=== PATIENT | male | born 1955 | race African-American/Black ===

== ENCOUNTER → 2018-08-09 | Outpatient (CLI) | payer OTHER ==
[~2018-08-09] MED LIST: BUPIVACAINE MPF 0.5% 10 ML VIAL. IJ ONE; CHOL400C PO; CYCL5TAB PO; FERR325T23 PO; IOHEXOL 300 MG/ML 50 ML VIAL. IJ ONE; LIDOCAINE WITH 8.4% SOD BICARB 3 ML DISP.SYRIN. INJ ONE; METO25TA4 PO; TRAZ-86 PO; methylPREDNISolone ACETATE 80 MG/ML VIAL. IM ONE
--- NOTE | 2018-08-09 15:10 | RAD ---
Fluoroscopically guided right hip joint injection, 08/09/2018: History: Right hip pain Under local anesthesia, aseptic conditions and fluoroscopic guidance a 22-gauge spinal needle was passed into the right hip joint via an anterior approach. A small amount of iodinated contrast material was injected to confirm intra-articular positioning following which 3 cc of 0.5% Bupivacaine mixed with 80 mg of Depo-Medrol was injected in the joint as requested. The needle was then removed and hemostasis obtained. 0.7 minutes of fluoroscopy time was utilized. One fluoroscopic spot image was recorded. The patient tolerated the procedure well and left the department in good condition.
== END | disposition home or self-care (01) ==
LOC: RAD 13:14
PROVIDERS: ATTEND Orthopaedic Surgery
DX: M25.551 Pain in right hip (principal); J44.9 Chronic obstructive pulmonary disease, unspecified; F17.210 Nicotine dependence, cigarettes, uncomplicated; Z79.01 Long term (current) use of anticoagulants; Z95.1 Presence of aortocoronary bypass graft
CPT/HCPCS: 20610; 77002; J1040; Q9967

== ENCOUNTER → 2019-05-23 | Outpatient (CLI) | payer OTHER ==
[~2019-05-23] MED LIST changes: +ALBU2.5V8 INH; +ASPI-630 PO; +BUDE180A IH; -BUPIVACAINE MPF 0.5% 10 ML VIAL. IJ ONE; +HYDR-2769 PO; -IOHEXOL 300 MG/ML 50 ML VIAL. IJ ONE; -LIDOCAINE WITH 8.4% SOD BICARB 3 ML DISP.SYRIN. INJ ONE; +LIPITOR80 MG PO; +METO200T46 PO; +MIRT30TA3 PO; +PANT40TA77 PO; +SPIR25TA5 PO; +TRAZ-123 PO; -TRAZ-86 PO; +VALS320T2 PO; +ZOLP5TAB PO; -methylPREDNISolone ACETATE 80 MG/ML VIAL. IM ONE
[2019-05-23 09:56] LABS: PROTHROMBIN TIME PATIENT 13.7 SEC (11.7-14.0)
[2019-05-23 23:07] LABS: HEMOGLOBIN A1C 5.6 % (4.8-5.6)
--- NOTE | 2019-05-24 07:52 | RAD ---
CHEST PA LATERAL History: COPD. Presurgical evaluation. Comparison: 04/12/2013 Portable Chest X-ray Exam. Findings: Frontal and lateral views of the chest were obtained. Sternal wires and mediastinal clips are present. The cardiomediastinal silhouette is normal. Pulmonary vasculature is normal. The lungs are clear. Outside abdomen involves the lateral right lung field. Linear scarring at the left lateral mid thoracic level is similar to the previous exam. Borderline pulmonary hyperinflation. Bibasilar opacities which appear to represent nipple shadows are again seen. No pleural effusion or pneumothorax is seen. There is no acute bone abnormality. IMPRESSION: No acute cardiopulmonary process. Electronically signed by: Jigar Johnson MD (05/24/2019 7:50 AM) [facility]
== END | disposition home or self-care (01) ==
LOC: SURGPAT 13:05
PROVIDERS: ATTEND Orthopaedic Surgery
DX: Z01.818 Encounter for other preprocedural examination (principal); M87.051 Idiopathic aseptic necrosis of right femur; J44.9 Chronic obstructive pulmonary disease, unspecified; J98.4 Other disorders of lung
CPT/HCPCS: 36415; 71046; 82040; 82306; 83036; 85610; 85651; 85730; 87641

== ENCOUNTER 2019-06-14 07:48 | Inpatient (IN) | payer OTHER ==
[~2019-06-14] VITALS: Ht 180.3 cm; Wt 86.0 kg
[2019-06-14] VITALS (7 sets, daily range): BP systolic 138–156; BP diastolic 78–90
[~2019-06-14 07:48] MED LIST changes: +ACETAMINOPHEN 500 MG TABLET PO PRN; +GABAPENTIN 300 MG CAPSULE. PO PRN; +HYDROmorphone 2 MG/ML VIAL IV PRN; +IV RINGERS,LACTATED 1000ML 1,000 ML IV SCH; +LIDOCAINE 1% PF 2 ML VIAL. ID PRN; +MELOXICAM 7.5 MG TABLET PO PRN; +MORPHINE SULFATE 5 MG, KETOROLAC 30MG VIAL 30 MG, ROPIVacaine 0.5% PF 60 ML, EPINEPHrin... INT ART ONE; +ONDANSETRON PF 4 MG/2 ML VIAL. IV PRN; +PROCHLORPERAZINE 10 MG/2 ML VIAL. IV PRN; +TRANEXAMIC ACID 1,000 MG in IV NS 50ML -- 1ST BAG INJ ONE; +ceFAZolin SODIUM IV Push 1 GM VIAL. IVP PRN; +fentaNYL PF VIAL 100 MCG/2 ML VIAL IV PRN
[2019-06-14] MEDS ORDERED: TRANEXAMIC ACID 1,000 MG in IV NS 50ML -- 2ND BAG INJ ONE (08:00)
[2019-06-14] MEDS ORDERED: IPRATRPIUM/ALBUTEROL 0.5/2.5MG 3 ML NEBU. NEB ONE (08:45)
[2019-06-14] MEDS ORDERED: WARF-78 PO (08:56)
[2019-06-14] MEDS ORDERED: LIDOCAINE 2% PF 5 ML VIAL. ONE (08:57)
[2019-06-14] MEDS ORDERED: DEXAMETHASONE SOD PHOS 4 MG/ML VIAL ONE (08:57)
[2019-06-14] MEDS ORDERED: PROPOFOL 20 ML IV ONE (08:57)
[2019-06-14] MEDS ORDERED: ONDANSETRON PF 4 MG/2 ML VIAL. ONE (08:57)
[2019-06-14] MEDS ORDERED: fentaNYL PF VIAL 100 MCG/2 ML VIAL ONE (08:58)
[2019-06-14] MEDS ORDERED: ROCURONIUM 50 MG/5 ML VIAL. ONE (08:58)
[2019-06-14 09:05] LABS: PROTHROMBIN TIME PATIENT 13.3 SEC (11.7-14.0)
[2019-06-14] MEDS ORDERED: IV NORMAL SALINE 1000ML BAG 1,000 ML IV SCH (10:46)
[2019-06-14] MEDS ORDERED: diphenhydrAMINE 50 MG/ML VIAL IV PRN (11:00)
[2019-06-14] MEDS ORDERED: 0.9 % SODIUM CHLORIDE 10 ML DISP.SYRIN. IV PRN (11:00)
[2019-06-14] MEDS ORDERED: DEXTROSE 50% 25 GM / 50ML DISP.SYRIN. IV PRN (11:00)
[2019-06-14] MEDS ORDERED: PROCHLORPERAZINE 5 MG TABLET. PO PRN (11:00)
[2019-06-14] MEDS ORDERED: ZOLPIDEM 5 MG TABLET. PO PRN (11:00)
[2019-06-14] MEDS ORDERED: MORPHINE SULFATE 2 MG/ML VIAL. IV PRN (11:00)
[2019-06-14] MEDS ORDERED: CALCIUM CARBONATE 500 MG TAB.CHEW PO PRN (11:00)
[2019-06-14] MEDS ORDERED: fentaNYL PF VIAL 100 MCG/2 ML VIAL IV PRN (11:00)
--- NOTE | 2019-06-14 11:01 | HP ---
ADMIT DATE: 06/14/2019 PREOPERATIVE HISTORY AND PHYSICAL CHIEF COMPLAINT: Right hip pain. HISTORY OF PRESENT ILLNESS: The patient has had worsening right hip pain from avascular necrosis that had recurred status post intraarticular injection at the pain clinic, only getting about 40% relief for about 2 months in duration as of his last visit just before . Last year, he said he had severe pain in the groin radiating into the buttock and is worsening since then with activity and weightbearing. He has worse pain with fast walking. PAST MEDICAL HISTORY: Significant for heart disease, hypertension, remote heart attack, hyperlipidemia, COPD, hepatitis C, history of alcohol in the past, cataracts, anemia, congestive heart failure, depression, reflux disease, impotence, insomnia, low back pain, radiculopathy. PAST SURGICAL HISTORY: From previous 3-vessel coronary artery bypass in 2012, lumbar back surgery and a femoral bypass. FAMILY HISTORY: Significant for heart disease in his mother and brother and sister. SOCIAL HISTORY: He is a smoker, smoking about half a pack per day and occasional alcohol consumption. Denies drug use. MEDICATIONS: List is reviewed. ALLERGIES: He has no known drug allergies. REVIEW OF SYSTEMS: No recent chest pain, shortness of breath, fever, chills, focal weakness, numbness, tingling or other constitutional symptoms. PHYSICAL EXAMINATION: VITAL SIGNS: Per admission sheet. HEENT: Atraumatic, normocephalic. HEART: Regular rate and rhythm. LUNGS: Clear to auscultation bilaterally. ABDOMEN: Benign. EXTREMITIES: Examination of the right hip reveals decreased range of motion mildly with pain on extremes of range of motion or weightbearing on the right side. Normal motion on the left. No tenderness over the trochanteric bursa on either side. Leg lengths are equal. Normal alignment, stability of bilateral knees and ankles with intact motor function, distal pulses, sensation, reflexes and skin in both lower extremities throughout. IMAGING: X-rays show avascular necrosis to the right hip without current collapse, but it is certainly progressive on x-ray. TREATMENT PLAN: I went over with him the possibility of total hip arthroplasty versus other measures of potentially putting a cement type substance in the area. I think his collapse, however, is severe enough making that unlikely to work, especially with his other medical history unlikely to reestablish the blood supply, likewise with his risk factors, he is at increased risk for infection and other healing complications, we talked about possibility of instability, premature wear or loosening, nerve or blood vessel damage, medical or other anesthetic complications among others. All his questions were answered and he wishes to proceed with surgical evaluation and treatment for right total hip arthroplasty, posterior approach. GLENIS AGUILAR MD DR: AFSANEH/miguel JOB#: [id number] / [id number]
[2019-06-14] MEDS ORDERED: ONDANSETRON ODT 4 MG TAB.RAPDIS. PO PRN (12:00)
[2019-06-14] MEDS: ONDANSETRON PF 4 MG/2 ML VIAL. IV SCH ×2 (12:00→17:50)
[2019-06-14] MEDS ORDERED: GLYCOPYRROLATE 1 MG/5 ML VIAL. ONE (12:35)
[2019-06-14] MEDS ORDERED: NEOSTIGMINE METHYLSULFATE 5 MG/5 ML SYRINGE. ONE (12:35)
[2019-06-14] MEDS ORDERED: ePHEDrine PF IN SALINE 50 MG/10 ML SYRINGE. IV ONE (12:44)
--- NOTE | 2019-06-14 13:22 | PDOC4 ---
Operative Note Operative Note Date of surgery: 06/14/2019 Preoperative diagnosis: Avascular necrosis right hip Postoperative diagnosis: Same Operative procedure: Right total hip arthroplasty Surgeon: Rosalba Assist: Gregory Anesthesia: Gen. Estimated blood loss: 250 mL Complications: None Specimens: Femoral head to pathology Drains: Hemovac drain and intra-articular pain catheter Operative indications: Please see my orthopedic clinic note and dictated preoperative history and physical for detailed operative indications Operative text: Patient was identified she verified patient placed in the supine position on the operating table. After adequate amounts of general anesthesia were administered she was placed in the decubitus position right side up with the Stulberg hip positioner and all bony prominences were well-padded. The left hip was then prepped and draped in standard sterile fashion and after timeout was performed patient procedure identified and verified a curvilinear incision was made over the greater trochanter dissection carried out down to the iliotibial band and gluteal fascia which were split in line with their fibers a Charnley retractor was placed external rotators were divided from their insertion hip capsule was split in a T fashion and the hip was dislocated and femoral neck cut made templated using the femoral cutting guide for reference. He was noted to have irregularity of the articular cartilage on the femoral head and in the acetabulum which was sized approximately at a size 50. The acetabulum was exposed contents of the fovea and any residual labrum were excised and reami ng carried out up to a size 55 with a 56 [employer] hemispherical cluster hole sticktight coated acetabular shell which was impacted in proper orientation according to the alignment guide and a single superiorly directed screw was placed with excellent bite and stability of the component. A 40 mm inner diameter standard acetabular liner was impacted into place femur was then reamed and broached with a size 15 broach trial fit with a standard offset +4 mm trial which did reproduce his leg length and offset provided excellent stability. Trial components were removed and a size 15 Synergy standard offset component was impacted into place and assembled with a Oxinium 40 mm +4 femoral head which was impacted to engage the Wolfe taper and was reduced noting excellent reproduction of his leg length and offset as well as excellent stability to about 70 internal rotation at 90 hip flexion. Thorough irrigation carried out normal saline solution hip capsule was repaired with #5 Ethibond suture external rotators were reattached transosseously #5 Ethibond as well Hemovac drain and pain catheter were placed fascia was repaired with interrupted #5 Ethibond suture reinforced with #1 PDS strata fix suture. Subcutaneous closure with buried Vicryl suture in a layered fashion and subcuticular 3-0 strata fix Monocryl for skin closure a matthew drain with Acticoat was placed patient was returned to recovery room in stable condition having tolerated procedure well. Rahat Jenkins NP was present for the procedure and assisted in the patient positioning prepping draping retraction and skin closure. GLENIS AGUILAR MD Jun 14, 2019 13:22
[2019-06-14] MEDS ORDERED: MORPHINE SULFATE 2 MG/ML VIAL. ONE ×3 (13:57→15:25)
[2019-06-14] MEDS: MORPHINE SULFATE 2 MG/ML VIAL. IV PRN ×6 (14:09→15:57)
[2019-06-14] MEDS: CYCLOBENZAPRINE 10 MG TABLET. PO SCH ×2 (15:00→20:58)
[2019-06-14] MEDS ORDERED: WARFARIN 7.5 MG TABLET. PO ONE (16:00)
--- NOTE | 2019-06-14 16:01 | NUR ---
Arrived to unit by bed from PACU. Alert and oriented x's 4. No c/o at this time. Right hip dressing is d/i with IAC and Hemovac drain. Able to wiggle toes easily, warm to touch and pedal pulses + bilaterally. O2 at 2l per n/c. IVF's intact and infusing. MARCELL's and SCD's on bilaterally. Oriented to room and controls. Side rails up x's 2 with call light in reach. Cont. monitor.
--- NOTE | 2019-06-14 16:25 | RAD ---
EXAM: Right hip and pelvis, 3 views. HISTORY: Arthroplasty. COMPARISON: None. FINDINGS: A frontal view the pelvis and 2 views of the right hip are obtained. There is a right hip arthroplasty in expected position. There is surrounding soft tissue gas and a drain due to recent surgery. There is a stent within the right superficial femoral artery. There is degenerative change involving the lower lumbar spine. IMPRESSION: Right hip arthroplasty in expected position. Electronically signed by: Ayana Hernandez MD (06/14/2019 4:22 PM) [id number]
[2019-06-14] MEDS: oxyCODONE IR 5 MG TABLET PO PRN ×2 (16:54→22:58)
[2019-06-14] MEDS: FERROUS SULFATE 325 MG TABLET. PO SCH (16:55)
[2019-06-14] MEDS: NICOTINE 21MG PATCH. TD SCH (17:21)
[2019-06-14] MEDS: KETOROLAC 30MG VIAL 30 MG, BUPIVACAINE MPF 0.25% 20 ML, EPINEPHrine 0.5 MG in TOTAL VOL... INT ART SCH (17:47)
[2019-06-14] MEDS: BUDESONIDE 0.5 MG/2 ML NEBU. NEB SCH (20:32)
[2019-06-14] MEDS: ALBUTEROL SULFATE 2.5 MG/3 ML NEBU. INH PRN (20:32)
[2019-06-14] MEDS: ATORVASTATIN CALCIUM 40 MG TABLET. PO SCH (20:58)
[2019-06-14] MEDS: MIRTAZAPINE 15 MG TABLET PO SCH (20:58)
[2019-06-14] MEDS: SPIRONOLACTONE 25 MG TABLET PO SCH (20:58)
[2019-06-14] MEDS ORDERED: BUDESONIDE 180 MCG IH SCH (21:00)
[2019-06-14] MEDS: ZOLPIDEM 5 MG TABLET. PO PRN (22:58)
--- NOTE | 2019-06-14 23:29 | NUR ---
ambulated to bathroom with walker; unable to void. ambulated in hallway per request. again attempts to void. -no result. bladder scan obtained -->999. straight cath with a return of 500 cc paul urine. pain and sleeping pill given. Hemovac empty; drainage seeping from iac/Hemovac site;reinforced 4x4's. new gown placed.
[2019-06-15] MEDS: ZOLPIDEM 5 MG TABLET. PO PRN ×2 (01:57→20:48)
[2019-06-15 02:00] VITALS: BP 136/67
[2019-06-15] MEDS: oxyCODONE IR 5 MG TABLET PO PRN (04:32)
[2019-06-15] MEDS: KETOROLAC 30MG VIAL 30 MG, BUPIVACAINE MPF 0.25% 20 ML, EPINEPHrine 0.5 MG in TOTAL VOL... INT ART SCH (04:37)
[2019-06-15] MEDS: GABAPENTIN 100 MG CAPSULE. PO SCH ×3 (05:51→22:00)
[2019-06-15] MEDS: ONDANSETRON PF 4 MG/2 ML VIAL. IV SCH ×2 (05:51)
[2019-06-15] MEDS ORDERED: MAGNESIUM HYDROXIDE 2,400 MG/30 ML ORAL.SUSP. PO PRN (06:00)
[2019-06-15] MEDS: PANTOPRAZOLE 40 MG TABLET.DR. PO SCH (06:19)
[2019-06-15 06:20] LABS: PROTHROMBIN TIME PATIENT 14.6 SEC (11.7-14.0)
[2019-06-15] MEDS: traMADol 50 MG TABLET PO SCH ×4 (06:20→23:58)
[2019-06-15 06:27] VITALS: BP 135/79
--- NOTE | 2019-06-15 07:04 | NUR ---
Asa slept poorly after 2 ambiens. he was able to void 500-600 cc after straight cath; voiding without problems. continues to rate his pain "4". iv fluids dc'd after denying nausea
[2019-06-15] MEDS: BUDESONIDE 0.5 MG/2 ML NEBU. NEB SCH ×2 (07:11→21:06)
[2019-06-15] MEDS: ALBUTEROL SULFATE 2.5 MG/3 ML NEBU. INH PRN (07:12)
--- NOTE | 2019-06-15 07:29 | PDOC ---
ORTHO PROGRESS NOTES Subjective Patient rates his pain at a 4 out of 10 and doing well except for some congestion. Post-op Day: 1 Procedure R LOU Vitals Vital Signs Date Time Temp Pulse Resp B/P (MAP) Pulse Ox O2 Delivery O2 Flow Rate FiO2 06/15/19 07:12 98 Room Air 06/15/19 06:27 97.6 70 20 135/79 (97) 97.6 06/14/19 18:30 2.0 Labs Laboratory Tests Test 06/14/19 08:30 06/15/19 04:15 Prothrombin Time 13.3 SEC (11.7-14.0) 14.6 SEC (11.7-14.0) Prothromb Time International Ratio 1.1 (0.8-1.1) 1.2 (0.8-1.1) Activated Partial Thromboplast Time 34 SEC (24-38) Laboratory Tests Test 06/14/19 08:30 06/15/19 04:15 Prothrombin Time 13.3 SEC (11.7-14.0) 14.6 SEC (11.7-14.0) Prothromb Time International Ratio 1.1 (0.8-1.1) 1.2 (0.8-1.1) Activated Partial Thromboplast Time 34 SEC (24-38) Notes awake and alert receiving breathing treatment Assessment and Plan POD # 1 S/P LOU motor and sensation intact at RLE calf soft and non tender Dressing with new drainage at distal end of wound RN will reinforce dressing as needed Will ok for breathing treatments QID and prn per wheezing encourage IS and cough ZOFIA HERNÁNDEZ APRN Jun 15, 2019 07:29
[2019-06-15 08:24] VITALS: BP 136/72
[2019-06-15] MEDS: ACETAMINOPHEN 500 MG TABLET PO SCH ×3 (08:26→20:43)
[2019-06-15] MEDS: SENNOSIDES/DOCUSATE 8.6/50MG TABLET. PO SCH (08:26)
[2019-06-15] MEDS: CYCLOBENZAPRINE 10 MG TABLET. PO SCH ×3 (08:26→20:44)
[2019-06-15] MEDS: FERROUS SULFATE 325 MG TABLET. PO SCH ×2 (08:26→17:43)
[2019-06-15] MEDS: ASPIRIN CHEWABLE 81 MG TABLET. PO SCH (08:27)
[2019-06-15] MEDS: MULTIVITAMIN with MINERAL TABLET. PO SCH (08:27)
[2019-06-15] MEDS: MELOXICAM 7.5 MG TABLET PO SCH (08:27)
[2019-06-15] MEDS: LOSARTAN POTASSIUM 50 MG TABLET. PO SCH (08:28)
[2019-06-15] MEDS: SPIRONOLACTONE 25 MG TABLET PO SCH ×2 (08:28→20:43)
[2019-06-15] MEDS: METOPROLOL SUCC 24HR ER 100 MG TAB.ER.24H. PO SCH (08:29)
[2019-06-15] MEDS: NICOTINE 21MG PATCH. TD SCH (08:32)
[2019-06-15] MEDS: HYDROcodone/APAP 10/325 1 TAB TABLET PO PRN (09:13)
[2019-06-15] MEDS: ALBUTEROL SULFATE 2.5 MG/3 ML NEBU. NEB SCH ×3 (12:05→21:06)
--- NOTE | 2019-06-15 12:19 | NUR ---
Pharmacy Warfarin Dosing Note S:Pharmacy consulted to assist with anticoagulation therapy started 06/14/19 with target INR: 1.6 - 2.5 O:LIZ DIAZ is a 64 year old M with LOU LABS: Last INR: 1.2 Last HGB: Last HCT: Last PLT: 14.6 Last dose of 7.5 mg given on 06/14/19 at 1600 Previous Regimen: Vitamin K given: N Drug Interaction Changes: Ongoing Drug Interactions: A:INR of 1.2 is below desired range. Target range for this patient is: 1.6 - 2.5 P: Warfarin dose: 5 mg Today at 1600 Bridge Therapy: Next INR due IN AM Pharmacy anticoagulation service will continue to follow. ELIN KRUGER [facility], 06/15/19 1020
[2019-06-15] MEDS ORDERED: BISACODYL 10 MG SUPP.RECT. PR PRN (16:00)
[2019-06-15] MEDS ORDERED: WARFARIN 5 MG TABLET. PO ONE (16:00)
[2019-06-15 17:39] VITALS: BP 151/80
[2019-06-15] MEDS: MIRTAZAPINE 15 MG TABLET PO SCH (20:44)
[2019-06-15] MEDS: ATORVASTATIN CALCIUM 40 MG TABLET. PO SCH (20:44)
[2019-06-15 21:00] VITALS: BP 112/61
[2019-06-16] MEDS: ACETAMINOPHEN 500 MG TABLET PO SCH ×4 (03:00→21:29)
[2019-06-16] MEDS: HYDROcodone/APAP 10/325 1 TAB TABLET PO PRN (04:12)
[2019-06-16 04:30] LABS: HEMATOCRIT 38.4 % (39.0-53.0); HEMOGLOBIN 12.9 g/dL (13.0-17.5)
[2019-06-16 04:39] LABS: PROTHROMBIN TIME PATIENT 18.3 SEC (11.7-14.0)
[2019-06-16] MEDS: GABAPENTIN 100 MG CAPSULE. PO SCH ×3 (06:00→21:29)
[2019-06-16] MEDS: traMADol 50 MG TABLET PO SCH ×3 (06:07→16:56)
[2019-06-16 06:12] VITALS: BP 140/78
[2019-06-16] MEDS: PANTOPRAZOLE 40 MG TABLET.DR. PO SCH (06:55)
[2019-06-16] MEDS: ALBUTEROL SULFATE 2.5 MG/3 ML NEBU. NEB SCH ×4 (07:05→20:43)
[2019-06-16] MEDS: BUDESONIDE 0.5 MG/2 ML NEBU. NEB SCH ×2 (07:06→20:43)
[2019-06-16] MEDS ORDERED: BISACODYL 5 MG TABLET.DR. PO PRN (08:00)
[2019-06-16] MEDS: NICOTINE 21MG PATCH. TD SCH (08:08)
[2019-06-16] MEDS: SENNOSIDES/DOCUSATE 8.6/50MG TABLET. PO SCH (08:09)
[2019-06-16] MEDS: CYCLOBENZAPRINE 10 MG TABLET. PO SCH ×3 (08:10→21:29)
[2019-06-16] MEDS: METOPROLOL SUCC 24HR ER 100 MG TAB.ER.24H. PO SCH (08:10)
[2019-06-16] MEDS: MULTIVITAMIN with MINERAL TABLET. PO SCH (08:11)
[2019-06-16] MEDS: SPIRONOLACTONE 25 MG TABLET PO SCH ×2 (08:11→21:28)
[2019-06-16] MEDS: MELOXICAM 7.5 MG TABLET PO SCH (08:11)
[2019-06-16] MEDS: FERROUS SULFATE 325 MG TABLET. PO SCH ×2 (08:11→16:42)
[2019-06-16] MEDS: ASPIRIN CHEWABLE 81 MG TABLET. PO SCH (08:11)
[2019-06-16 08:53] VITALS: BP 125/70
[2019-06-16] MEDS: oxyCODONE IR 5 MG TABLET PO PRN ×3 (08:57→21:30)
[2019-06-16] MEDS ORDERED: ONDANSETRON ODT 4 MG TAB.RAPDIS. PO PRN (12:00)
[2019-06-16] MEDS ORDERED: ONDANSETRON PF 4 MG/2 ML VIAL. IV PRN (12:00)
[2019-06-16] MEDS: LOSARTAN POTASSIUM 50 MG TABLET. PO SCH (12:18)
[2019-06-16 12:19] VITALS: BP 139/76
--- NOTE | 2019-06-16 12:27 | NUR ---
Pharmacy Warfarin Dosing Note S: Pharmacy consulted to assist with anticoagulation therapy started 06/14/19 O: LIZ DIAZ is a 64 year old M with LOU LABS: Last INR: 1.6 Last HGB: 12.9 Last HCT: 38.4 Last dose of 5 mg given on 06/15/19 at 1743 Ongoing Drug Interactions: MOBIC A:INR of 1.6 is within desired range. Target range for this patient is: 1.6 - 2.5 P: Warfarin dose: 3 mg Today at 1600 Bridge Therapy: none Next INR due 06/17/19 AM Pharmacy anticoagulation service will continue to follow. ALLIE JAMES RP, 06/16/19 2781
--- NOTE | 2019-06-16 14:07 | PATHOLOGY ---
[facility] Accession Number: [id number] . 01 Material submitted: . hip - RIGHT HIP BONE AND TISSUE. Modifiers: right . 01 Clinical history: . Avascular necrosis of bone right hip . 02 Diagnosis: Femoral head, right total hip arthroplasty: - Subarticular avascular necrosis. - Degenerative arthritis. (JPM:luis; 06/16/2019) MBR 06/16/2019 1016 Local . 02 Electronically signed: . Sesar Roberts MD, Pathologist NPI- [id number] . 01 Gross description: . The specimen is received in formalin, labeled "Asa Lester, right hip bone and tissue" and consists of a femoral head measuring 4.8 x 4.7 x 4.6 cm with neck measuring approximate 2 cm in length and 4.3 cm in width. The articular surface is prather-brown and smooth to granular. Sectioning reveals a yellow prather wedge-shaped segment of necrosis measuring 3.9 cm in greatest dimension which abuts the cartilage cap. Sr. Operations Manager sections are submitted in A1-A2 following decalcification. (SDY; 06/15/2019) SYU/SYU 06/15/2019 1433 Local . 02 Pathologist provided ICD-10: M17.11 . 02 CPT . 493489, [id number] Specimen Comment: A courtesy copy of this report has been sent to [phone] Specimen Comment: Report sent to Dr. Davidson Performed at: 01 [facility] [address], [place] [id number] MD Aurelio Monet MD Phone: [phone] Performed at: [address] [facility] [address] [place], [place] [id number] MD Sesar Roberts MD Phone: [phone]
--- NOTE | 2019-06-16 15:51 | NUR ---
attended both rehab sessions and tolerated well. pain has been controlled with tramadol and Roxicodone. wants to do outpatient therapy. unable to drive. nephew called and spoke with Asa and will be able to provide a ride to rehab. will reinforce to family regarding the 3x's a week outpatient rehab
[2019-06-16] MEDS ORDERED: WARFARIN 3 MG TABLET. PO ONE (16:00)
--- NOTE | 2019-06-16 17:07 | NUR ---
Reinforced to Asa's family ( and stepson) that he would need to go therapy 3x's a week for 6 weeks and need to get his blood drawn on Thursday for the blood thinner. after the initial visit that an appt could be at their convenience. he would need a ride at least to and fro to therapy. they verbalized understanding.
[2019-06-16 17:58] VITALS: BP 146/71
[2019-06-16] MEDS: MIRTAZAPINE 15 MG TABLET PO SCH (21:31)
[2019-06-16] MEDS: ATORVASTATIN CALCIUM 40 MG TABLET. PO SCH (21:31)
[2019-06-17] MEDS: traMADol 50 MG TABLET PO SCH ×3 (00:07→12:09)
[2019-06-17] MEDS: ACETAMINOPHEN 500 MG TABLET PO SCH ×3 (03:00→15:53)
[2019-06-17 04:16] LABS: HEMATOCRIT 39.5 % (39.0-53.0); HEMOGLOBIN 12.9 g/dL (13.0-17.5)
[2019-06-17 04:25] LABS: PROTHROMBIN TIME PATIENT 20.5 SEC (11.7-14.0)
[2019-06-17] MEDS: PANTOPRAZOLE 40 MG TABLET.DR. PO SCH (05:52)
[2019-06-17] MEDS: GABAPENTIN 100 MG CAPSULE. PO SCH ×2 (05:54→15:53)
[2019-06-17 06:00] VITALS: BP 142/84
[2019-06-17] MEDS: BUDESONIDE 0.5 MG/2 ML NEBU. NEB SCH (07:05)
[2019-06-17] MEDS: ALBUTEROL SULFATE 2.5 MG/3 ML NEBU. NEB SCH ×2 (07:05→11:13)
[2019-06-17 08:20] VITALS: BP 124/71
[2019-06-17] MEDS: MELOXICAM 7.5 MG TABLET PO SCH (08:22)
[2019-06-17] MEDS: FERROUS SULFATE 325 MG TABLET. PO SCH (08:23)
[2019-06-17] MEDS: MULTIVITAMIN with MINERAL TABLET. PO SCH (08:23)
[2019-06-17] MEDS: ASPIRIN CHEWABLE 81 MG TABLET. PO SCH (08:24)
[2019-06-17] MEDS: CYCLOBENZAPRINE 10 MG TABLET. PO SCH ×2 (08:24→15:54)
[2019-06-17] MEDS: SPIRONOLACTONE 25 MG TABLET PO SCH (08:25)
[2019-06-17] MEDS: NICOTINE 21MG PATCH. TD SCH (08:26)
[2019-06-17] MEDS: SENNOSIDES/DOCUSATE 8.6/50MG TABLET. PO SCH (08:30)
--- NOTE | 2019-06-17 10:35 | NUR ---
Pharmacy Warfarin Dosing Note S: Pharmacy consulted to assist with anticoagulation therapy started 06/14/19 O: LIZ DIAZ is a 64 year old M with LOU LABS: Last INR: 1.8 Last HGB: 12.9 Last HCT: 39.5 Last PLT: - Last dose of 3 mg given on 06/16/19 at 1643 Vitamin K given: N Ongoing Drug Interactions: MOBIC A:INR of 1.8 is within desired range. Target range for this patient is: 1.6 - 2.5 P: Warfarin dose: 3 mg Prior to Discharge Next INR due Monday 06/19 to be drawn at [facility] OP appointment Pharmacy anticoagulation service will continue to follow. Medina Gould Roe, 06/17/19 4506
[2019-06-17] MEDS ORDERED: TRAM50TA PO (11:24)
[2019-06-17] MEDS ORDERED: OXYC5CAP PO (11:24)
--- NOTE | 2019-06-17 11:25 | DISCH ---
DISCHARGE INSTRUCTIONS Condition on Discharge Condition on Discharge: Stable Activity After Discharge Activity Instructions for Disc: Activity as tolerated Weight Bearing Status after Di: As tolerated (standard total hip precautions) Diet after Discharge Diet after Discharge: Regular Wound Incision Care Wound/Incision Care: Do not change dressing (keep matthew dressing intact call us saturated) Contacting the after DC Call your doctor for: Concerns you may have Follow-Up Follow up with: Dr. Navarrete 2 weeks postoperatively Warfarin Follow-Up Warfarin Follow UP: [facility] at pharmacy to manage w arfarin dose GLENIS NAVARRETE MD Jun 17, 2019 11:25
[2019-06-17] MEDS: METOPROLOL SUCC 24HR ER 100 MG TAB.ER.24H. PO SCH (12:14)
[2019-06-17] MEDS: LOSARTAN POTASSIUM 50 MG TABLET. PO SCH (12:15)
[2019-06-17] MEDS ORDERED: WARFARIN 3 MG TABLET. PO ONE (14:00)
[2019-06-17 15:00] VITALS: BP 138/80
[2019-06-17] MEDS: oxyCODONE IR 5 MG TABLET PO PRN (15:56)
--- NOTE | 2019-06-17 16:18 | NUR ---
Discharge instructions given with prescriptions. Answered questions and concerns. Verbalized understanding. Pt discharged home accompanied by step son.
--- NOTE | 2019-06-18 13:18 | DS ---
DATE OF DISCHARGE: 06/17/2019 PRINCIPAL DIAGNOSIS: Avascular necrosis, right hip. PROCEDURE: Right total hip arthroplasty. DISPOSITION: Home with outpatient physical therapy. ACTIVITY: Weightbearing as tolerated with standard total hip precautions. DISPOSITION MEDICATIONS: Include oxycodone 5 mg p.o. every 4 hours p.r.n. severe pain, tramadol 50 mg p.o. every 4 hours p.r.n. moderate pain, Coumadin as directed by Anticoagulation Clinic. DISCHARGE INSTRUCTIONS: Resume preoperative medications. Maintain HECTOR dressing. Call if saturated. Call if any fever, chills, uncontrolled pain or other concerns or complications. Follow up with Dr. Navarrete in 2 weeks postoperatively. BRIEF DESCRIPTION OF HOSPITAL COURSE: The patient underwent uncomplicated right total hip arthroplasty for avascular necrosis, postoperatively remained medically stable, got up and around well with physical therapy negotiating his ambulation and transfers and was discharged home in stable condition. GLENIS NAVARRETE MD DR: AFSANEH/miguel JOB#: [id number] / [id number]
[2019-06-18] MEDS ORDERED: WARFARIN 3 MG TABLET. PO SCH (16:00)
== END 2019-06-17 16:18 | disposition home or self-care (01) | DRG 470 ==
LOC: SURG 07:48 → 4 SOUTHEST 13:38 → OBSVTOIN 15:03
PROVIDERS: ADMIT Orthopaedic Surgery; ATTEND Orthopaedic Surgery
PROC: 0SR906Z Replacement of Right Hip Joint with Oxidized Zirconium on Polyethylene Synthetic Substitute, Open Approach (ICD-10-PCS; principal; 2019-06-14 09:30)
DX: M87.851 Other osteonecrosis, right femur (principal); E78.5 Hyperlipidemia, unspecified; F17.210 Nicotine dependence, cigarettes, uncomplicated; I11.0 Hypertensive heart disease with heart failure; I25.2 Old myocardial infarction; I50.9 Heart failure, unspecified; J44.9 Chronic obstructive pulmonary disease, unspecified; M87.9 Osteonecrosis, unspecified; Z82.49 Family history of ischemic heart disease and other diseases of the circulatory system; Z95.1 Presence of aortocoronary bypass graft; Z96.641 Presence of right artificial hip joint; F32.9 Major depressive disorder, single episode, unspecified; G47.00 Insomnia, unspecified; H26.9 Unspecified cataract; K21.9 Gastro-esophageal reflux disease without esophagitis; Z79.899 Other long term (current) drug therapy
CPT/HCPCS: 36415; 73502; 85014; 85018; 85610; 85730; 86850; 86900; 86901; 88305; 88311; 94640; 94760; A7015; C1713; G0379; J0171; J0696; J1100; J1885; J2001; J2270; J2405; J2704; J2710; J2795; J3010; J3490; J7030; 97116; 97150; 97530; 97535; G0378; J7613; J7626; Q0162

== ENCOUNTER 2020-05-04 13:22 | Emergency (ER) | payer MEDICARE, OTHER ==
[~2020-05-04] VITALS: Ht 180.3 cm; Wt 88.6 kg
[2020-05-04 13:22] VITALS: BP 176/78
[~2020-05-04 13:22] MED LIST changes: -ACETAMINOPHEN 500 MG TABLET PO PRN; -GABAPENTIN 300 MG CAPSULE. PO PRN; -HYDROmorphone 2 MG/ML VIAL IV PRN; -IV RINGERS,LACTATED 1000ML 1,000 ML IV SCH; -LIDOCAINE 1% PF 2 ML VIAL. ID PRN; -MELOXICAM 7.5 MG TABLET PO PRN; +MIRT-8 PO; -MIRT30TA3 PO; -MORPHINE SULFATE 5 MG, KETOROLAC 30MG VIAL 30 MG, ROPIVacaine 0.5% PF 60 ML, EPINEPHrin... INT ART ONE; -ONDANSETRON PF 4 MG/2 ML VIAL. IV PRN; +OXYC5CAP PO; -PROCHLORPERAZINE 10 MG/2 ML VIAL. IV PRN; +TRAM50TA PO; -TRANEXAMIC ACID 1,000 MG in IV NS 50ML -- 1ST BAG INJ ONE; +WARF5TAB2 PO; -ceFAZolin SODIUM IV Push 1 GM VIAL. IVP PRN; -fentaNYL PF VIAL 100 MCG/2 ML VIAL IV PRN
[2020-05-04] MEDS ORDERED: NAPR-514 PO ×2 (14:11→14:36)
[2020-05-04] MEDS ORDERED: CEPH500C PO (14:11)
[2020-05-04] MEDS ORDERED: MUPI22OI2 TP ×2 (14:11→14:36)
--- NOTE | 2020-05-04 14:12 | ED.ADGEN ---
Past Medical History Past Medical History: CHF, COPD, GERD, [place], Other Additional Past Medical Histor: PVD,CHRONIC BACK PAIN Past Surgical History: Coronary Bypass Surgery, Other Additional Past Surgical Histo: BACK,STENTS IN LEGS Smoking Status: Current Every Day Smoker Additional Information: 0.5 PPD Alcohol Use: Occasionally Drug Use: None General Adult EDM: Chief Complaint: FOOT INJURY PAIN HPI: HPI: Patient is a 65 year old AA male who presents to the emergency department, coming by his , with complaints of pain, swelling, and redness to his right second toe for the last week and a half. Patient reports that he accidentally cut his skin of his second toe when he was trimming his toenails and the toe became infected. He reports a small amount of pus come out from beneath the toenail. Patient states that he also noticed some swelling and redness to his right great toe, he denies any known injury. Patient denies any fever, decreased sensation, numbness, tingling, or inability to ambulate. He currently rates the discomfort a 9 out of 10 on the pain scale, he denies any alleviating factors, the area feels tender to touch. He denies any history of gout. Review of Systems: Review of Systems: Complete ROS is negative unless otherwise noted in HPI. Allergies: Allergies: Allergies Coded Allergies Type Severity Reaction Last Updated Verified No Known Drug Allergies 06/14/19 No Physical Exam: PE: See Above Constitutional: Well developed, well nourished, no acute distress, non-toxic appearance. [] HENT: Normocephalic, atraumatic, bilateral external ears normal, nose normal. [] Eyes: PERRLA, EOMI, conjunctiva normal, no discharge. [] Neck: Normal range of motion, no stridor. [] Cardiovascular:Heart rate regular rhythm Lungs & Thorax: Respirations even and unlabored, no retractions, no respiratory distress Skin: Warm, dry, erythema to first and second toes of right foot with a honey crusted lesion over the dorsal aspect of the second proximal toe, cap refill less than 2 seconds Extremities: Right foot: Toes 1 through 5 are nontender to palpation with no obvious deformity, or crepitus; no cyanosis, ROM intact, 1+ edema to toes and foot, 2+ pedal pulse, 2+ posterior tibial pulse Neurologic: Alert and oriented X 3, no focal deficits noted. [] Psychologic: Affect normal, judgement normal, mood normal. [] Current Patient Data: Vital Signs: Vital Signs Date Time Temp Pulse Resp B/P (MAP) Pulse Ox O2 Delivery O2 Flow Rate FiO2 05/04/20 13:22 98.4 62 17 176/78 (110) Room Air 98.4 EKG: EKG: [] Heart Score: Risk Factors: Risk Factors: DM, Current or recent (<one month) smoker, HTN, HLP, family history of CAD, obesity. Risk Scores: Score 0 - 3: 2.5% MACE over next 6 weeks - Discharge Home Score 4 - 6: 20.3% MACE over next 6 weeks - Admit for Clinical Observation Score 7 - 10: 72.7% MACE over next 6 weeks - Early Invasive Strategies Radiology/Procedures: Radiology/Procedures: [] Course & Med Decision Making: Course & Med Decision Making Pertinent Labs and Imaging studies reviewed. (See chart for details) [] Dragon Disclaimer: Dragon Disclaimer: This electronic medical record was generated, in whole or in part, using a voice recognition dictation system. Departure Departure Impression: Primary Impression: Cellulitis of second toe of right foot Additional Impression: Gout Disposition: 01 DC HOME SELF CARE/HOMELESS Condition: STABLE Referrals: CHANTELLE MESA V (PCP) Patient Instructions: Cellulitis, [id number], Gout, Jmie-[id number] Additional Instructions: Fill the prescriptions and take them as directed. Follow-up with your primary care doctor next week for repeat evaluation. You can take Tylenol in addition to the prescribed naproxen as needed for pain. Return to the ER if you develop a fever or your symptoms worsen. Scripts Mupirocin (MUPIROCIN OINTMENT) 22 Gm Oint...g. 1 HAM TP TID for WOUND CARE for 7 Days, #1 TUBE 0 Refills Prov: DANIELITO CERNA PADDOCK JUDGE 05/04/20 Cephalexin (CEPHALEXIN) 500 Mg Tablet 1 TAB PO QID, #40 TAB 0 Refills Prov: DANIELITO CERNA PADDOCK JUDGE 05/04/20 Naproxen (NAPROXEN) 500 Mg Tablet 1 TAB PO BID PRN for PAIN for 10 Days, #20 TAB 0 Refills Prov: DANIELITO CERNA PADDOCK JUDGE 05/04/20 Problem Qualifiers Additional Impression: Gout Gout site: foot Gout etiology: unspecified cause Chronicity: unspecified Laterality: right Qualified Codes: M10.9 - Gout, unspecified DANIELITO CERNA PADDOCK JUDGE May 04, 2020 14:12
[2020-05-04] MEDS ORDERED: CEPH500T PO (14:36)
== END 2020-05-04 14:48 | disposition home or self-care (01) ==
LOC: ER 13:22
DX: L03.031 Cellulitis of right toe (principal); M10.9 Gout, unspecified; R60.0 Localized edema; J44.9 Chronic obstructive pulmonary disease, unspecified; K21.9 Gastro-esophageal reflux disease without esophagitis; I25.2 Old myocardial infarction; I50.9 Heart failure, unspecified; G89.29 Other chronic pain; F17.200 Nicotine dependence, unspecified, uncomplicated; Z98.890 Other specified postprocedural states
CPT/HCPCS: 36415; 84550; 99284